=== PATIENT | female | born 1940 | race Caucasian/White ===

== ENCOUNTER → 2016-04-21 | Outpatient (CLI) | payer MEDICARE | DX: E05.90 Thyrotoxicosis, unspecified without thyrotoxic crisis or storm (principal); Z91.040 Latex allergy status; Z91.041 Radiographic dye allergy status | CPT/HCPCS: 76536 ==

== ENCOUNTER → 2020-06-18 | Outpatient (CLI) | payer MEDICARE, OTHER ==
[~2020-06-18] MED LIST: COZAAR25 MG PO; GLUCOTROL 10 MG10 MG PO; LEVAQUIN500 MG PO; MEDROL DOSEPAK 24 MG PO; NORCO 5-325 TA1 EACH PO; NORVASC 5 MG TAB5 MG PO; NOVOLIN R100 UNIT/1 SQ; PRINIVIL10 MG PO; TAPAZOLE10 MG PO
== END ==
LOC: KOH-I 08:00
DX: R74.8 Abnormal levels of other serum enzymes (principal); N28.1 Cyst of kidney, acquired
CPT/HCPCS: 76700

== ENCOUNTER → 2020-08-04 | Outpatient (CLI) | payer MEDICARE, OTHER | LOC: NM 07:59 | DX: K82.8 Other specified diseases of gallbladder (principal); R74.8 Abnormal levels of other serum enzymes; M19.90 Unspecified osteoarthritis, unspecified site | CPT/HCPCS: 78306; A9503 ==

== ENCOUNTER → 2020-08-08 | Outpatient (CLI) | payer MEDICARE, OTHER | LOC: NM 12:34 | DX: K82.8 Other specified diseases of gallbladder (principal); R74.8 Abnormal levels of other serum enzymes | CPT/HCPCS: 78226; A9537 ==

== ENCOUNTER → 2020-11-27 | Outpatient (CLI) | payer MEDICARE, OTHER | LOC: RAD 08:49 | DX: M51.34 Other intervertebral disc degeneration, thoracic region (principal); M51.36 Other intervertebral disc degeneration, lumbar region | CPT/HCPCS: 72072; 72110 ==